=== PATIENT | male | born 1995 | race Caucasian/White ===

== ENCOUNTER 2018-07-11 06:58 | Emergency (ER) | payer MEDICAID ==
[~2018-07-11] VITALS: Ht 188 cm; Wt 77.6 kg
[~2018-07-11 06:58] MED LIST: DOXYCYCLINE HY100 M3 PO; NAPROXEN500 MG PO; NORCO 5-325 TA1 EACH PO; PYRIDIUM200 MG PO; TRAMADOL HCL50 MG PO
[2018-07-11] MEDS ORDERED: FLUOXETINE HCL10 MG PO (07:10)
[2018-07-11] MEDS ORDERED: ZITHROMAX250 MG PO (08:46)
[2018-07-11] MEDS ORDERED: ONDANSETRON ODT8 MG PO (08:46)
== END 2018-07-11 10:56 | disposition home or self-care (01) ==
LOC: ED 06:58
DX: J18.1 Lobar pneumonia, unspecified organism (principal); F17.200 Nicotine dependence, unspecified, uncomplicated; F41.9 Anxiety disorder, unspecified; Z79.899 Other long term (current) drug therapy
CPT/HCPCS: 71046; 80053; 81001; 85025; 87502; 94640; 96365; 96366; 96368; 96375; 99285-25; 99406; J0456; J0696; J1885; J2405; J7030

== ENCOUNTER 2024-09-11 15:25 | Emergency (ER) | payer OTHER ==
[~2024-09-11] VITALS: Ht 188 cm; Wt 83.2 kg
[~2024-09-11 15:25] MED LIST changes: +FLUOXETINE HCL10 MG PO; +ONDANSETRON ODT8 MG PO; +ZITHROMAX250 MG PO
[2024-09-11] MEDS ORDERED: BUPRENORPHINE-1 EACH SL (16:24)
[2024-09-11] MEDS ORDERED: ALBUTEROL SULFATE 0.083% 3 ML VIAL INH ONE (17:45)
[2024-09-11] MEDS ORDERED: ACETAMINOPHEN 500 MG TAB PO ONE (17:45)
[2024-09-11] MEDS ORDERED: predniSONE 20 MG TAB PO ONE (17:45)
[2024-09-11] MEDS ORDERED: ALBUTEROL SULFATE 8 GM HOME.PACK INH ONE (19:00)
[2024-09-11] MEDS ORDERED: PREDNISONE20 MG PO (19:00)
[2024-09-11] MEDS ORDERED: INHALER, ASSIST DEVICES 1 EACH SPACER MISC ONE (19:00)
[2024-09-11 19:18] VITALS: BP 127/73
== END 2024-09-11 19:19 | disposition home or self-care (01) ==
LOC: ED 15:25
DX: J20.9 Acute bronchitis, unspecified (principal); F17.200 Nicotine dependence, unspecified, uncomplicated; Z79.899 Other long term (current) drug therapy
CPT/HCPCS: 71046; 94640; 94664; 99283-25; A9270; J7512